=== PATIENT | female | born 1980 | race Hispanic/Latino ===

== ENCOUNTER 2018-02-03 14:32 | Emergency (ER) | payer BC, SELFPAY ==
[2018-02-03 15:33] LABS: Urine Blood TRACE (NEG); Urine Glucose NEGATIVE (NEG); Urine Protein 3+ (NEG); Urine Specific Gravity 1.015 (1.005-1.030)
[2018-02-03 15:35] LABS: Urine Bacteria >50 /HPF (<20); Urine Culture Reflex Order REFLEXED; Urine RBC <5 /HPF (NONE SEEN)
[2018-02-03] MEDS ORDERED: CEFTRIAXONE 1000 MG/VIAL ONE (15:58)
[2018-02-03] MEDS ORDERED: LIDOCAINE 1% MPF 5 ML VIAL ONE (15:58)
--- NOTE | 2018-02-03 16:29 | ER ---
Nurse's Notes [facility] Name: Laverne Soria Age: 37 yrs Sex: Female : 1980 Arrival Date: 02/03/2018 Time: 14:40 Bed 8 Private MD: Diagnosis: Acute tubulo-interstitial nephritis Presentation: 02/03 14:44 Presenting complaint: Patient states: Lower back pain and RLQ pain for 2 weeks. Patient aj reports vomiting this AM. Transition of care: patient was not received from another setting of care. Onset of symptoms was January 26, 2018. Care prior to arrival: None. 14:44 Method Of Arrival: Ambulatory aj 14:44 Acuity: SPENSER 3 aj Triage Assessment: 14:46 General: Appears in no apparent distress. uncomfortable, Behavior is calm, cooperative, aj appropriate for age. Pain: Complains of pain in low back area, posterior aspect of right lateral abdomen, anterior aspect of right lateral abdomen and right lower quadrant Pain currently is 10 out of 10 on a pain scale. Neuro: Level of Consciousness is awake, alert, obeys commands, Oriented to person, place, time, situation. Respiratory: Airway is patent Respiratory effort is even, unlabored, Respiratory pattern is regular, symmetrical. GI: Reports nausea, vomiting. Derm: Skin is intact, is healthy with good turgor, Skin is pink, warm \T\ dry. normal. Musculoskeletal: Circulation, motion, and sensation intact. 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 - Social history:: Smoking status: Patient/guardian denies using tobacco. Screenin:00 Abuse screen: Denies threats or abuse. Denies injuries from another. hb 15:00 Nutritional screening: No deficits noted. Tuberculosis screening: No symptoms or risk hb factors identified. Fall Risk None identified. Assessment: 15:00 General: Appears in no apparent distress. Behavior is calm, cooperative. Pain: Pain hb currently is 5 out of 10 on a pain scale. Neuro: Level of Consciousness is awake, alert, obeys commands, Oriented to person, place, time, situation. Cardiovascular: Capillary refill < 3 seconds Patient's skin is warm and dry. Respiratory: Airway is patent Respiratory effort is even, unlabored, Respiratory pattern is regular, symmetrical, Breath sounds are clear bilaterally. GI: Abdomen is non-distended, Bowel sounds present X 4 quads. Abd is soft and non tender X 4 quads. Reports nausea. : No signs and/or symptoms were reported regarding the genitourinary system. EENT: No signs and/or symptoms were reported regarding the EENT system. Derm: No signs and/or symptoms reported regarding the dermatologic system. Skin is intact, is healthy with good turgor, Skin is pink, warm \T\ dry. Musculoskeletal: No signs and/or symptoms reported regarding the musculoskeletal system. 16:00 Reassessment: Patient appears in no apparent distress at this time. Patient and/or hb family updated on plan of care and expected duration. Pain level reassessed. Patient is alert, oriented x 3, equal unlabored respirations, skin warm/dry/pink. Patient denies pain at this time. Patient states feeling better. Patient states symptoms have improved. Vital Signs: 14:46 BP 128 / 108; Pulse 103; Resp 18; Temp 97.8; Pulse Ox 100% on R/A; Weight 80.29 kg; aj Height 5 ft. 3 in. (160.02 cm); Pain 10/10; 15:00 BP 136 / 86; Pulse 84; Resp 16; Pulse Ox 100% on R/A; hb 16:00 BP 122 / 88; Pulse 88; Resp 16; Pulse Ox 100% on R/A; hb 14:46 Body Mass Index 31.35 (80.29 kg, 160.02 cm) ED Course: 14:40 Patient arrived in ED. mr 14:45 Triage completed. aj 14:46 Arm band placed on right wrist. Patient placed in an exam room. aj 14:50 Jose Corbin MD is Attending Physician. 15:21 America Canchola, RN is Primary Nurse. hb 15:30 Patient has correct armband on for positive identification. Bed in low position. Call hb light in reach. Side rails up X 1. 15:49 Urine Microscopic Only Sent. hb 16:50 No provider procedures requiring assistance completed. Patient did not have IV access hb during this emergency room visit. Administered Medications: 15:49 Drug: Rocephin (cefTRIAXone) 1 grams Route: IM; Site: right deltoid; 16:10 Follow up: Response: No adverse reaction hb Outcome: 16:28 Discharge ordered by . 16:50 Discharged to home ambulatory. 16:50 Condition: stable 16:50 Discharge instructions given to patient, Instructed on discharge instructions, follow up and referral plans. medication usage, Demonstrated understanding of instructions, follow-up care, medications, Prescriptions given X 1. 16:51 Patient left the ED. hb Addendum: 02/06/2018 11:00 Addendum: Culture Results: Positive urine culture. No further action required. Bacteria s s sensitive to prescribed antibiotic. Signatures: Suni Cummins, Alysha Bruno RN, Shelby, RN RN ss Baxter, Heather, RN RN Jose Corbin MD MD gs
--- NOTE | 2018-02-03 16:29 | EDPHYS ---
Physician Documentation [facility] Name: Laverne Soria Age: 37 yrs Sex: Female : 1980 Arrival Date: 02/03/2018 Time: 14:40 Bed 8 Private MD: ED Physician Jose Corbin HPI: 02/03 16:14 This 37 yrs old Female presents to ER via Ambulatory with complaints of Back gs Pain. 16:14 The patient presents with pain that is acute. The symptoms are located in the left low gs back and right low back. Onset: The symptoms/episode began/occurred gradually. The pain does not radiate. Associated signs and symptoms: Pertinent positives: dysuria. The problem was sustained from unknown cause. Modifying factors: The patient symptoms are alleviated by nothing, the patient symptoms are aggravated by movement. Severity of symptoms: At their worst the symptoms were moderate, in the emergency department the symptoms are unchanged. The patient has not experienced similar symptoms in the past. 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 - Social history:: Smoking status: Patient/guardian denies using tobacco. ROS: 16:14 All other systems are negative. gs Exam: 16:14 Head/Face: Normocephalic, atraumatic. Eyes: Pupils equal round and reactive to light, gs extra-ocular motions intact. Lids and lashes normal. Conjunctiva and sclera are non-icteric and not injected. Cornea within normal limits. Periorbital areas with no swelling, redness, or edema. ENT: Nares patent. No nasal discharge, no septal abnormalities noted. Tympanic membranes are normal and external auditory canals are clear. Oropharynx with no redness, swelling, or masses, exudates, or evidence of obstruction, uvula midline. Mucous membranes moist. Neck: Trachea midline, no thyromegaly or masses palpated, and no cervical lymphadenopathy. Supple, full range of motion without nuchal rigidity, or vertebral point tenderness. No Meningismus. Chest/axilla: Normal chest wall appearance and motion. Nontender with no deformity. No lesions are appreciated. Respiratory: Lungs have equal breath sounds bilaterally, clear to auscultation and percussion. No rales, rhonchi or wheezes noted. No increased work of breathing, no retractions or nasal flaring. Abdomen/GI: Soft, non-tender, with normal bowel sounds. No distension or tympany. No guarding or rebound. No evidence of tenderness throughout. Skin: Warm, dry with normal turgor. Normal color with no rashes, no lesions, and no evidence of cellulitis. MS/ Extremity: Pulses equal, no cyanosis. Neurovascular intact. Full, normal range of motion. Neuro: Awake and alert, GCS 15, oriented to person, place, time, and situation. Cranial nerves II-XII grossly intact. Motor strength 5/5 in all extremities. Sensory grossly intact. Cerebellar exam normal. Normal gait. 16:14 Constitutional: The patient appears alert, awake. 16:14 Cardiovascular: Rate: tachycardic, actual rate is 103 bpm, Rhythm: regular, Pulses: no pulse deficits are appreciated, Heart sounds: normal. 16:14 Back: CVA tenderness, that is mild, is noted bilaterally. Vital Signs: 14:46 BP 128 / 108; Pulse 103; Resp 18; Temp 97.8; Pulse Ox 100% on R/A; Weight 80.29 kg; aj Height 5 ft. 3 in. (160.02 cm); Pain 10/10; 15:00 BP 136 / 86; Pulse 84; Resp 16; Pulse Ox 100% on R/A; hb 16:00 BP 122 / 88; Pulse 88; Resp 16; Pulse Ox 100% on R/A; hb 14:46 Body Mass Index 31.35 (80.29 kg, 160.02 cm) aj MDM: 15:20 Patient medically screened. 16:14 Differential diagnosis: chronic back pain, Pyelonephritis ruptured disc. Data reviewed: vital signs, nurses notes. Counseling: I had a detailed discussion with the patient and/or guardian regarding: the presence of at least one elevated blood pressure reading (>120/80) during this emergency department visit. Response to treatment: the patient's symptoms have markedly improved after treatment. Special discussion: I have referred the patient to see his PCP for further evaluation of high blood pressure. 02/03 15:03 Order name: Urine Microscopic Only ss 02/03 15:03 Order name: Urine Microscopic Only; Complete Time: 16:13 EDMS 02/03 15:07 Order name: Urine Dipstick--Ancillary (enter results); Complete Time: 15:34 bd 02/03 15:07 Order name: Urine --Ancillary (enter results); Complete Time: 15:34 bd 02/03 15:37 Order name: Urine Culture EDMS Administered Medications: 15:49 Drug: Rocephin (cefTRIAXone) 1 grams Route: IM; Site: right deltoid; hb 16:10 Follow up: Response: No adverse reaction hb Disposition: 02/03/18 16:28 Discharged to Home. Impression: Acute tubulo-interstitial nephritis. - Condition is Stable. - Discharge Instructions: Pyelonephritis, Adult, Managing Your High Blood Pressure. - Prescriptions for Keflex 500 mg Oral Capsule - take 2 capsule by ORAL route every 12 hours for 7 days; 28 capsule. - Medication Reconciliation Form, Thank You Letter, Antibiotic Education, Prescription Opioid Use form. - Follow up: Private Physician; When: 2 - 3 days; Reason: Re-evaluation by your physician. Signatures: Dispatcher [employer] Suni Vazquez, RN RN America Stephen RN RN Jose Corbin MD MD
== END 2018-02-03 16:51 | disposition home or self-care (01) ==
LOC: ER 14:32
DX: N10 Acute pyelonephritis (principal)
CPT/HCPCS: 81003; 81015; 81025; 87077; 87086; 87088; 87186; 96372; 99283

== ENCOUNTER 2018-10-05 11:58 | Emergency (ER) | payer SELFPAY ==
--- NOTE | 2018-10-05 14:04 | ER ---
Nurse's Notes [facility] Name: Laverne Soria Age: 38 yrs Sex: Female : 1980 Arrival Date: 10/05/2018 Time: 12:03 Bed 25 Private MD: Unknown, Unknown Diagnosis: Conjunctivitis Presentation: 10/05 12:07 Presenting complaint: Patient states: "yesterday my eye way red but this morning when I dm5 woke up it was worse and hurts a lot worse.". Transition of care: patient was not received from another setting of care. Onset of symptoms was October 04, 2018. Risk Assessment: Do you want to hurt yourself or someone else? Patient reports no desire to harm self or others. Initial Sepsis Screen: Does the patient meet any 2 criteria? No. Patient's initial sepsis screen is negative. Does the patient have a suspected source of infection? Yes: Other: eye. Care prior to arrival: None. 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 - Social history:: Smoking status: Patient/guardian denies using tobacco. - Ebola Screening: : Patient negative for fever greater than or equal to 101.5 degrees Fahrenheit, and additional compatible Ebola Virus Disease symptoms Patient denies exposure to infectious person Patient denies travel to an Ebola-affected area in the 21 days before illness onset No symptoms or risks identified at this time. Screenin:19 Abuse screen: Denies threats or abuse. Denies injuries from another. Nutritional aj screening: No deficits noted. Tuberculosis screening: No symptoms or risk factors identified. Fall Risk None identified. Assessment: 14:19 General: Appears in no apparent distress. comfortable, Behavior is calm, cooperative, aj appropriate for age. Pain: Denies pain. Neuro: Level of Consciousness is awake, alert, obeys commands, Oriented to person, place, time, situation, Appropriate for age. Respiratory: Airway is patent Respiratory effort is even, unlabored, Respiratory pattern is regular, symmetrical. EENT: Reports swelling to bilateral eyes. Derm: Skin is intact, is healthy with good turgor, Skin is pink, warm \\T\\ dry. normal. Vital Signs: 12:11 BP 160 / 95; Pulse 75; Resp 20; Temp 97.6; Pulse Ox 100% on R/A; Weight 78.47 kg (R); dm5 Height 5 ft. 3 in. (160.02 cm) (R); Pain 10/10; 12:11 Body Mass Index 30.65 (78.47 kg, 160.02 cm) 5 ED Course: 12:03 Patient arrived in ED. ag5 12:03 Unknown, Unknown is Private Physician. 5 12:08 Triage completed. dm5 12:11 Arm band placed on left wrist. Patient placed in waiting room. [facility] 13:32 [facility] Noble [facility]. tom 13:32 Hipolito Bustamante MD is Attending Physician. jrJuan 13:39 Suni Cummins, RN is Primary Nurse. aj 14:19 Patient has correct armband on for positive identification. aj 14:19 No provider procedures requiring assistance completed. Patient did not have IV access aj during this emergency room visit. Administered Medications: No medications were administered Outcome: 14:03 Discharge ordered by . jrJuan 14:31 Discharged to home ambulatory. aj 14:31 Condition: good 14:31 Discharge instructions given to patient, family, Instructed on discharge instructions, follow up and referral plans. medication usage, Demonstrated understanding of instructions, follow-up care, medications, Prescriptions given X 1. 14:32 Patient left the ED. aj Signatures: Jagruti Darling RN Suni Carranza RN RN aj Roszak, Josh, PA PA jr8 [place], [facility]
--- NOTE | 2018-10-05 14:04 | EDPHYS ---
Physician Documentation [facility] Name: Laverne Soria Age: 38 yrs Sex: Female : 1980 Arrival Date: 10/05/2018 Time: 12:03 Bed 25 Private MD: Unknown, Unknown ED Physician Hipolito Bustamante HPI: 10/05 14:01 This 38 yrs old Female presents to ER via Ambulatory with complaints of Eye jr8 Swelling, Redness of Eye. 14:01 The patient is experiencing burning, matting or discharge, redness, tearing, to the jr8 right eye. Onset: The symptoms/episode began/occurred acutely, yesterday. Duration: the symptoms are continuous. Aggravated by blinking, light, pressure, Alleviated by nothing. Associated signs and symptoms: Pertinent positives: None. Patient does not utilize any form of vision correction. Severity of symptoms: At their worst the symptoms were mild in the emergency department the symptoms are unchanged. The patient has not experienced similar symptoms in the past. The patient has not recently seen a physician. Denies trauma to eye. 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 - Social history:: Smoking status: Patient/guardian denies using tobacco. - Ebola Screening: : Patient negative for fever greater than or equal to 101.5 degrees Fahrenheit, and additional compatible Ebola Virus Disease symptoms Patient denies exposure to infectious person Patient denies travel to an Ebola-affected area in the 21 days before illness onset No symptoms or risks identified at this time. ROS: 14:01 Constitutional: Negative for fever, chills, and weight loss, ENT: Negative for injury, jr8 pain, and discharge, Neck: Negative for injury, pain, and swelling, Cardiovascular: Negative for chest pain, palpitations, and edema, Respiratory: Negative for shortness of breath, cough, wheezing, and pleuritic chest pain, Abdomen/GI: Negative for abdominal pain, nausea, vomiting, diarrhea, and constipation, Back: Negative for injury and pain, MS/Extremity: Negative for injury and deformity, Skin: Negative for injury, rash, and discoloration, Neuro: Negative for headache, weakness, numbness, tingling, and seizure. 14:01 Eyes: Positive for matting, pain, redness, tearing, of the right eye. Exam: 14:01 Head/Face: Normocephalic, atraumatic. ENT: Nares patent. No nasal discharge, no jr8 septal abnormalities noted. Tympanic membranes are normal and external auditory canals are clear. Oropharynx with no redness, swelling, or masses, exudates, or evidence of obstruction, uvula midline. Mucous membranes moist. Neck: Trachea midline, no thyromegaly or masses palpated, and no cervical lymphadenopathy. Supple, full range of motion without nuchal rigidity, or vertebral point tenderness. No Meningismus. Cardiovascular: Regular rate and rhythm with a normal S1 and S2. No gallops, murmurs, or rubs. Normal PMI, no JVD. No pulse deficits. Respiratory: Lungs have equal breath sounds bilaterally, clear to auscultation and percussion. No rales, rhonchi or wheezes noted. No increased work of breathing, no retractions or nasal flaring. Abdomen/GI: Soft, non-tender, with normal bowel sounds. No distension or tympany. No guarding or rebound. No evidence of tenderness throughout. Back: No spinal tenderness. No costovertebral tenderness. Full range of motion. Skin: Warm, dry with normal turgor. Normal color with no rashes, no lesions, and no evidence of cellulitis. MS/ Extremity: Pulses equal, no cyanosis. Neurovascular intact. Full, normal range of motion. Neuro: Awake and alert, GCS 15, oriented to person, place, time, and situation. Cranial nerves II-XII grossly intact. Motor strength 5/5 in all extremities. Sensory grossly intact. Cerebellar exam normal. Normal gait. 14:01 Eyes: Periorbital structures: appear normal, Pupils: equal, round, and reactive to light and accomodation, Extraocular movements: intact throughout, Conjunctiva: injected, in the right eye, tearing noted, in right eye, Corneas: are normal, Sclera: no appreciated abnormality, Anterior chamber: normal, Lids and lashes: appear normal. Vital Signs: 12:11 BP 160 / 95; Pulse 75; Resp 20; Temp 97.6; Pulse Ox 100% on R/A; Weight 78.47 kg (R); dm5 Height 5 ft. 3 in. (160.02 cm) (R); Pain 10/10; 12:11 Body Mass Index 30.65 (78.47 kg, 160.02 cm) dm5 MDM: 13:32 Patient medically screened. jr8 14:01 Data reviewed: vital signs, nurses notes, and as a result, I will discharge patient. jr8 Data interpreted: Pulse oximetry: on room air is 100 %. Interpretation: normal. Counseling: I had a detailed discussion with the patient and/or guardian regarding: the historical points, exam findings, and any diagnostic results supporting the discharge/admit diagnosis, the need for outpatient follow up, an opthalmologist, a family practitioner, to return to the emergency department if symptoms worsen or persist or if there are any questions or concerns that arise at home. Administered Medications: No medications were administered Disposition: 18:07 Co-signature as Attending Physician, Hipolito Bustamante MD I agree with the assessment and [facility] plan of care. Disposition: 10/05/18 14:03 Discharged to Home. Impression: Conjunctivitis. - Condition is Stable. - Discharge Instructions: Bacterial Conjunctivitis, Viral Conjunctivitis. - Prescriptions for Gentamicin 0.3 % Ophthalmic Drops - instill 2 drop by OPHTHALMIC route every 4 hours for 7 days; 1 bottle. - Medication Reconciliation Form, Thank You Letter, Antibiotic Education, Prescription Opioid Use form. - Follow up: Private Physician; When: 7 - 10 days; Reason: If symptoms return, Recheck today's complaints, Continuance of care, Re-evaluation by your physician. - Problem is new. - Symptoms have improved. Signatures: Jagruti Darling RN RN dmSuni Molina RN RN aj Anderson, Corey, MD MD cha Roszak, Josh, PA PA jr8 Corrections: (The following items were deleted from the chart) 14:32 14:03 10/05/2018 14:03 Discharged to Home. Impression: Conjunctivitis. Condition is aj Stable. Forms are Medication Reconciliation Form, Thank You Letter, Antibiotic Education, Prescription Opioid Use. Follow up: Private Physician; When: 7 - 10 days; Reason: If symptoms return, Recheck today's complaints, Continuance of care, Re-evaluation by your physician. Problem is new. Symptoms have improved. jr8
== END 2018-10-05 14:32 | disposition home or self-care (01) ==
LOC: ER 11:58
DX: H10.9 Unspecified conjunctivitis (principal); I10 Essential (primary) hypertension
CPT/HCPCS: 99282

== ENCOUNTER 2022-04-06 16:42 | Emergency (ER) | payer OTHER, SELFPAY ==
--- OUTSIDE RECORDS SUMMARY | 2022-04-06 16:45 | XMS REPORT | Continuity of Care Document ---
:[address] [facility] t Address [address] [place] [address] Dr. Danielle. [address] [place] [address] Care Team Providers Name Role Phone Pcp, Does Not Have A Primary Care Physician Du, H Attending Clinician Unavailable Ali Attending Clinician Unavailable Singer BRADFORD Attending Clinician Doctor Unassigned, Name Attending Clinician Unavailable Candido VILLATORO Attending Clinician Unavailable Mino Abdi NP Attending Clinician Du, H Admitting Clinician Unavailable KNOW Admitting Clinician Unavailable Lyly Admitting Clinician Unavailable Payers Payer Name Policy Type Policy Number Effective Date Expiration Date [place] [employer] [id number] 2020 HEALTH 00:00:00 Problems Condition Condition Condition Status Onset Resolution Last Treating Co mments Source Name Details Category Date Date Treatment Clinician Date Essential Essential Disease Active 2015-11 Uni vers hypertensi hypertensi 2-09 it y of on, benign [place], [id number] Yeast Yeast Disease Active 2015-11 Univers infection infection 2- ity of 00:00: [address] Morbid Morbid Disease Active Univers obesity obesity 2- ity of 00:00: [address] Contracept Contracept Disease Active U nivers eliceo eliceo 2-27 ity of management management 00:00: [place] History of History of Disease Active 2012-11 U edilberto tubal tubal 11-29 ity of ligation ligation 00:00: [place] 00 Medical Branch Type 2 Type 2 Disease Active 2012-11 Overview: [facility] diabetes diabetes 11-29 Formattin ity of mellitus mellitus 00:00: g of this [place] as without without 00 note Medical complicati complicati might be Branch ons ons different from the original. Given rx for Metformin 500mg once daily by Latrell Hinkle on 4.ICD10 Diagnosis Term [employer] Allergies, Adverse Reactions, Alerts Allergy Allergy Status Severity Reaction(s) Onset Inactive Treating Comm ents Source Name Type Date Date Clinician No Known DA Active U [facility] Allergie 3- Clear s 00:00: [place] 00 [facility] NO KNOWN Drug Active Univers ALLERGIE Class ity of S [facility] Social History Social Habit Start Date Stop Date Quantity Comments Source Exposure to Not sure [facility]-CoV-2 [place] [facility] (event) Branch Alcohol intake 2020-10-29 2020-10-29 Current [facility] 00:00:00 00:00:00 non-drinker of [facility] alcohol Branch (finding) Tobacco use and 2013-09-29 2013-09-29 Never used Universit y of exposure 00:00:00 00:00:00 [facility] Sex Ass[birth year] At [birth year] Universit y of 00:00:00 00:00:00 [facility] Smoking Status Start Date Stop Date Source Never smoker [facility] Branch Medications Ordered Filled Start Stop Current Ordering Indication Dosage Frequency Signature Comments Components Source Medication Medication Date Date Medication? Clinician (SIG) Name Name chlorphenir 2020-11 Yes [id number] 4mg Take 1 Univers amine 4 mg 0-07 tablet by ity of tablet 00:00: mouth [place] 00 every 6 Medical (six) Branch hours as needed for Allergies or Runny nose. calcium/mag 2020-11 Yes [id number] 1{each} Take 1 Univers nesium/zinc 0-07 Each by ity o f (CALCIUM-MA 00:00: mouth [place] GNESUIUM-ZI 00 daily. Medica l NC) Branch 333-133-5 mg Tab benzonatate 2020-11 Yes [id number] 100mg Take 1 Univers 100 mg 0-07 capsule by ity of capsule 00:00: mouth 3 [place] 00 (three) Medical times Branch daily as needed for Cough. fluticasone 2020-11 Yes [id number] 2{spray Use 2 Univers propionate 0-07 } Sprays in ity of 50 00:00: each [place] mcg/actuati 00 nostril Medic al on nasal daily. Branch spray vitamin 2020-11- No [id number] 1{tbl} Take 1 U nivers D3-folic 0-07 09-09 tablet by ity o f acid 125 00:00: 04:59 mouth [place] mcg (5,000 00 :00 daily for Medi pablo unit)-1 mg 30 days. Branc h Tab cefTRIAXone 2019-11- No 1000mg 1,000 mg, Univers (ROCEPHIN) 12-31 IV ity of 1,000 mg in 04:00: 15:59 [place]gyback, [place] NaCl 0.9% 00 :00 ONCE, 1 Medical (NS) 50 mL dose, [facility] MINI-BAG 10/29/20 at 2200, 50 mL
Reas on for Anti-Infec tive: Documented Infection< br>Documen adams Infection Site: Urine
D uration of Therapy: 7 days magnesium 2019-11- No 1g 8 mEq (1 Uni vers sulfate 4 12-31 g), IV ity of mEq/mL (50 03:15: 03:15 [place]gyback, [place] %) 00 :00 ONCE, 1 Medical injection 8 dose, [facility] mEq 10/29/20 at 2115, STAT iohexol 2019-11- No 100mL 100 mL, Unive rs (OMNIPAQUE 12-31 Intravenou it y of 350 02:00: 01:52 s, ONCE, 1 [place] BULK-100 00 :00 dose, [facility] l mL) 10/29/20 Branch injection at 2000, 100 mL Routine ketorolac 2019-11- No 30mg 30 mg, Unive rs (TORADOL) 12-31 Slow IV ity of injection 01:15: 00:43 Push, [place] 30 mg 00 :00 ONCE, 1 Medical dose, Sun Branch 10/29/20 at 1915, Routine
sales team member approving Restricted medication : CHELY ABDI acetaminoph 2019-11- No 1000mg 1,000 mg, Univers en -30 10- Oral, ity of (TYLENOL) 00:30: 23:27 ONCE, 1 [place] tablet 00 :00 dose, [facility] 1,000 mg 10/29/20 Branch at 1830, ZAHIRA NaCl 0.9% 2019-11- No 1000mL at 999 Uni vers (NS) bolus - 12-28 mL/hr, ity of infusion 00:15: 01:58 1,000 mL, [place] as 1,000 mL 00 :00 IV Medical Infusion, Branch ONCE, 1 dose, 10/29/20 at 1815, ZAHIRA ibuprofen 2019-11 Yes [id number] 800mg Take 1 U nivers 800 mg 2-27 tablet by ity of tablet 00:00: mouth [place] 00 every 8 Medical (eight) Branch hours as needed for Pain (scale 1-3), Pain (scale 4-6) or Temp > 38.5 C. ibuprofen 2019-11 Yes [id number] 800mg Take 1 U nivers 800 mg 2-27 tablet by ity of tablet 00:00: mouth [place] 00 every 8 Medical (eight) Branch hours as needed for Pain (scale 1-3), Pain (scale 4-6) or Temp > 38.5 C. ibuprofen 2019-11 Yes [id number] 800mg Take 1 U nivers 800 mg 2-27 tablet by ity of tablet 00:00: mouth [place] 00 every 8 Medical (eight) Branch hours as needed for Pain (scale 1-3), Pain (scale 4-6) or Temp > 38.5 C. cefpodoxime 2019-11- No [id number] 200mg Take 1 Univers 200 mg 2-27 11-04 tablet by ity of tablet 00:00: 05:59 mouth 2 [place] 00 :00 (two) Medical times Branch daily for 10 doses. hydroCHLORO 2015-11 Yes [id number] 25mg Take 1 U nivers thiazide 2-09 tablet by ity of (ESIDRIX) 00:00: mouth [place] 25 mg 00 daily. Medical tablet Branch hydroCHLORO 2015-11 Yes [id number] 25mg Take 1 U nivers thiazide 2-09 tablet by ity of (ESIDRIX) 00:00: mouth [place] 25 mg 00 daily. Medical tablet Branch hydroCHLORO 2015-11 Yes [id number] 25mg Take 1 U nivers thiazide 2-09 tablet by ity of (ESIDRIX) 00:00: mouth [place] 25 mg 00 daily. [facility] Branch Immunizations Ordered Filled Immunization Date Status Comments [facility] e Immunization Name Name SARS-COV-2 COVID-19 2021-01-07 Completed Unive rsity of MODERNA VACCINE 00:00:[address] [facility] SARS-COV-2 COVID-19 2021-01-07 Completed Unive rsity of MODERNA VACCINE 00:00:[address] [facility] Branch SARS-COV-2 COVID-19 2020-12-10 Completed Unive rsity of MODERNA VACCINE 00:00:00 [facility] Branch SARS-COV-2 COVID-19 2020-12-10 Completed Unive rsity of MODERNA VACCINE 00:00:[address] [facility] TDAP 2013-09-29 Completed University of 00:00:00 [facility] TDAP 2013-09-29 Completed University of 00:00:00 [facility] Branch TDAP 2013-09-29 Completed University of 00:00:00 [place] [facility] [place] Td 1997-06-29 Completed University of 00:00:00 [place] [facility] Td 1997-06-29 Completed University of 00:00:00 [facility] Td 1997-06-29 Completed University of 00:00:00 [facility] Vital Signs Vital Name Observation Time Observation Value Comments Source Systolic blood 2021-08-09 17:56:00 168 mm[Hg] Univer sity of pressure [facility] Diastolic blood 2021-08-09 17:56:00 82 mm[Hg] Unive rsity of pressure [facility] Heart rate 2021-08-09 17:56:00 83 /min [facility] Body temperature 2021-08-09 17:56:00 36.39 Saranya [facility] Respiratory rate 2021-08-09 17:56:00 18 /min [facility] Body height 2021-08-09 17:56:00 157.5 cm [facility] Body weight 2021-08-09 17:56:00 94.348 kg [facility] BMI 2021-08-09 17:56:00 38.04 kg/m2 [facility] Oxygen saturation in 2021-08-09 17:56:00 99 /min [facility] Arterial blood by [facility] Pulse oximetry Branch Systolic blood 2020-10-30 03:00:00 126 mm[Hg] [place]na[place] sity of pressure [facility] Diastolic blood 2020-10-30 03:00:00 81 mm[Hg] [facility] Heart rate 2020-10-30 03:00:00 82 /min [facility] Respiratory rate 2020-10-30 03:00:00 18 /min [facility] Oxygen saturation in 2020-10-30 03:00:00 94 /min [facility] Arterial blood by [facility] Pulse oximetry Branch Body temperature 2020-10-30 00:30:00 38.33 Saranya [facility] Body weight 2020-10-29 23:25:00 91.627 kg [facility] BMI 2020-10-29 23:25:00 35.78 kg/m2 [facility] Procedures Procedure Date / Time Performed Performing Clinician Inge LOPEZID-19 (ID NOW RAPID 2021-08-09 17:59:00 Yevgeniy Encarnacion [facility] TESTING) Medical Branch NOTICE OF PRIVACY 2021-08-09 17:51:32 Doctor Unassigned, No [facility] PRACTICES Name [facility] CONSENT/REFUSAL FOR 2021-08-09 17:51:20 Doctor Unassigned, No [facility] DIAGNOSIS AND Name Medical Branch TREATMENT MAGNESIUM 2020-10-30 02:21:00 Chely Abdi [facility] [place] [facility] CT ABDOMEN PELVIS W 2020-10-30 01:58:10 Chely Abdi [facility] CONTRAST Medical Branch LIPASE 2020-10-30 00:46:00 Chely Abdi [facility] [place] [facility] HEPATIC FUNCTION PANEL 2020-10-30 00:46:00 Chely Abdi [facility] ([id number]) Medical [place] (ALB,T.PRO,BILI T,BU/BC,ALT,AST,ALK PHOS) BASIC METABOLIC PANEL 2020-10-30 00:46:00 Chely Abdi [facility] (NA, K, CL, CO2, Medical Branch GLUCOSE, BUN, CREATININE, CA) CBC WITH DIFF 2020-10-30 00:46:00 Chely Abdi [facility] [place] [facility] URINALYSIS 2020-10-30 00:46:00 Chely Abdi [facility] [place] [facility] POCT TEST 2020-10-30 00:45:00 Chely Abdi [facility] NOTICE OF PRIVACY 2020-10-29 23:10:17 Doctor Unassigned, No Univ [facility] PRACTICES Name Medical Branch Encounters Start End Encounter Admission Attending Care Care Encounter Source Date/Time Date/Time Type Type Clinicians Facility Department ID 2021-09-04 Emergency [facility] [id number] Univers 04:55:44 [facility] 2021-09-01 Emergency [facility] [id number] Univers 13:14:30 [facility] 2022-03-25 2022-03-26 Inpatient Demario Chen [facility] MEDI.01 [id number] [facility] 08:57:00 12:05:00 [id number] [facility] 2022-03-25 2022-03-26 Inpatient Demario Chen [facility] MEDI.01 [id number] [facility] 08:57:00 12:05:00 52 [facility] 2022-01-07 2022-01-07 Outpatient Terry Patricia [facility] DAYS [id number] [facility] 08:00:00 08:00:00 [id number] [facility] 2022-01-07 2022-01-07 Outpatient Terry Patricia [facility] V01 [id number] [facility] 08:00:00 08:00:00 76 [facility] 2022-01-04 2022-01-04 Outpatient [facility] [id number] [facility] 13:58:00 13:58:00 [id number] [facility] 2021-08-09 2021-08-09 Emergency [facility] [id number] Univers 13:01:00 13:43:00 Yevgeniy Sams [id number] i ty of [place] [id number] [facility] [phone] [facility] 084 Branch 2021-08-09 2021-08-09 Orders Doctor EPIFANIO [id number] Univers 00:00:00 00:00:00 Only Unassigned, RAMAN [id number] ity of [facility] [id number] [facility] [id number] [facility] 009 Branch 2021-01-07 2021-01-07 Outpatient [facility] [id number] Univers 16:10:00 16:10:00 [id number] ity [facility] 2021-01-07 2021-01-07 Outpatient [facility] [id number] Univers 16:10:00 16:10:00 ity [facility] 2020-12-10 2020-12-10 Outpatient R SHAUNA, [facility] [id number] Univers 15:10:00 15:10:00 [place] ity [facility] 2020-10-29 2020-10-[address] [facility] [id number] Univers 17:28:00 21:22:00 Chely Herzog Latrell [id number] ity of [place] [id number] [facility] [id number] [address] Results Test Description Test Time Test Comments Results Result Comments Source CBC W/AUTO DIFF 2022-03-26 05:21:00 Test Item Value Reference Range Interpretation Comme nts WHITE BLOOD CELL (test code = WBC) 10.8 x10 3/uL 4.5-11.0 N RED BLOOD CELL (test code = RBC) 4.85 x10 6/uL 3.54-5.02 N HEMOGLOBIN (test code = HGB) 9.8 g/dL 11.0-15.0 L HEMATOCRIT (test code = HCT) 33.4 % 33.0-45.0 N MEAN CELL VOLUME (test code = MCV) 68.9 fL 81.0-99.0 L MEAN CELL HGB (test code = MCH) 20.2 pg 27.0-33.0 L MEAN CELL HGB CONCETRATION (test code = MCHC) 29.3 g/dL 33.0-37. 0 L RED CELL DISTRIBUTION WIDTH CV (test code = RDW) 17.3 % 11.5- 14.5 H RED CELL DISTRIBUTION WIDTH SD (test code = RDW-SD) 42.2 fL 37 .0-54.0 N PLATELET COUNT (test code = PLT) 413 x10 3/uL 150-400 H MEAN PLATELET VOLUME (test code = MPV) 9.8 fL 7.0-9.0 H NEUTROPHIL % (test code = NT%) 77.8 % 56.0-77.0 H IMMATURE GRANULOCYTE % (test code = IG%) 0.3 % 0.0-2.0 N LYMPHOCYTE % (test code = LY%) 16.9 % 14.0-32.0 N MONOCYTE % (test code = MO%) 4.9 % 4.8-9.0 N EOSINOPHIL % (test code = EO%) 0.0 % 0.3-3.7 L BASOPHIL % (test code = BA%) 0.1 % 0.0-2.0 N NUCLEATED RBC % (test code = NRBC%) 0.0 % 0-0 N NEUTROPHIL # (test code = NT#) 8.43 x10 3/uL 2.0-7.6 H IMMATURE GRANULOCYTE # (test code = IG#) 0.03 x10 3/uL 0.00-0.03 N LYMPHOCYTE # (test code = LY#) 1.83 x10 3/uL 1.0-3.8 N MONOCYTE # (test code = MO#) 0.53 x10 3/uL 0.1-0.8 N EOSINOPHIL # (test code = EO#) 0.00 x10 3/uL 0.0-0.2 N BASOPHIL # (test code = BA#) 0.01 x10 3/uL 0.0-0.2 N NUCLEATED RBC # (test code = NRBC#) 0.00 x10 3/uL 0.0-0.1 N MANUAL DIFF REQUIRED (test code = MDIFF) NO BASIC METABOLIC [id number] 05:19:00 Test Item Value Reference Range Interpretation Comments SODIUM (test code = NA) 138 mEq/L 134-147 N POTASSIUM (test code = 3.8 mEq/L 3.4-5.0 N K) CHLORIDE (test code = 105 mEq/L 100-108 N CL) CARBON DIOXIDE (test 27 mEq/l 21-33 N code = CO2) ANION GAP (test code = 10 0-20 N GAP) GLUCOSE (test code = 120 mg/dL 70-110 H GLU) BLOOD UREA NITROGEN 7 mg/dL 7-18 N (test code = BUN) GLOMERULAR FILTRATION 79.9 105-110 L Units of measure = RATE (test code = GFR) ml/mi n/1.73 m2 CREATININE (test code = 0.8 mg/dL 0.6-1.3 N CREAT) CALCIUM (test code = 8.8 mg/dL 8.0-10.5 N CA) Novel Coronavirus 2018 [id number] 01:17:00 Test Item Value Reference Range Interpretation Comments Novel Coronavirus Negative Negative Positive r esults are 2019 Inhouse (test indicativ e of the presence code = COVNONPUI) ofSARS-CoV -2 RNA, clinical correlation wit h patient historyand othe r diagnostic info rmation is necessary to determinepatien t infection status. Positiv e results do not rule out bacterial infection or co -infection with other viru ses. Negative result s do not preclude SARS-C oV-2 infection andsh ould not be used as the francis e basis for patient managementdecis ions. Negative result s must be combined with otherclinical observations, p atient history, and epidemiological information . Detection of SARS-CoV-2 RNA may be affe cted bysample collec tion methods, storag e conditions, and /or stageof infection. Anh l RNA mutations, vacc inations, antiviraltherap eutics, antibiotics, chemotherapeuti c orimmunosuppres ga drugs have not been e valuated for effectson d etection. Results are for the identification of SARS-CoV-2 RNA usingreal-time (RT) polymerase jose carlos n reaction (PCR) technolog yfor the qualitative det ection of nucleic acids f rom [id number] v irus and diagnosis of SA RS-CoV-2 virusinfection. It is an Emergency Use Authorization ( EUA) testauthorized by the U.S. FDA. CBC W/AUTO [id number] 16:28:00 Test Item Value Reference Range Interpretation Comments WHITE BLOOD CELL (test code = 10.2 x10 3/uL 4.5-11.0 N WBC) RED BLOOD CELL (test code = 4.69 x10 6/uL 3.54-5.02 N RBC) HEMOGLOBIN (test code = HGB) 9.5 g/dL 11.0-15.0 L HEMATOCRIT (test code = HCT) 32.1 % 33.0-45.0 L MEAN CELL VOLUME (test code = 68.4 fL 81.0-99.0 L MCV) MEAN CELL HGB (test code = MCH) 20.3 pg 27.0-33.0 L MEAN CELL HGB CONCETRATION 29.6 g/dL 33.0-37.0 L (test code = MCHC) RED CELL DISTRIBUTION WIDTH CV 17.9 % 11.5-14.5 H (test code = RDW) RED CELL DISTRIBUTION WIDTH SD 43.4 fL 37.0-54.0 N (test code = RDW-SD) PLATELET COUNT (test code = 413 x10 3/uL 150-400 H PLT) MEAN PLATELET VOLUME (test code 9.6 fL 7.0-9.0 H = MPV) NEUTROPHIL % (test code = NT%) 61.8 % 56.0-77.0 N IMMATURE GRANULOCYTE % (test 0.3 % 0.0-2.0 N code = IG%) LYMPHOCYTE % (test code = LY%) 29.0 % 14.0-32.0 N MONOCYTE % (test code = MO%) 7.7 % 4.8-9.0 N EOSINOPHIL % (test code = EO%) 0.5 % 0.3-3.7 N BASOPHIL % (test code = BA%) 0.7 % 0.0-2.0 N NUCLEATED RBC % (test code = 0.0 % 0-0 N NRBC%) NEUTROPHIL # (test code = NT#) 6.28 x10 3/uL 2.0-7.6 N IMMATURE GRANULOCYTE # (test 0.03 x10 3/uL 0.00-0.03 N code = IG#) LYMPHOCYTE # (test code = LY#) 2.95 x10 3/uL 1.0-3.8 N MONOCYTE # (test code = MO#) 0.78 x10 3/uL 0.1-0.8 N EOSINOPHIL # (test code = EO#) 0.05 x10 3/uL 0.0-0.2 N BASOPHIL # (test code = BA#) 0.07 x10 3/uL 0.0-0.2 N NUCLEATED RBC # (test code = 0.00 x10 3/uL 0.0-0.1 N NRBC#) MANUAL DIFF REQUIRED (test code NO = MDIFF) RBC [id number] 16:28:00 Test Item Value Reference Range Interpretation Comments ANISOCYTOSIS (test code = ANISO) 1+ POLYCHROMASIA (test code = POLC) 1+ MICROCYTOSIS (test code = MICR) 2+ OVALOCYTES (test code = OVAL) FEW BASIC METABOLIC [id number] 16:13:00 Test Item Value Reference Range Interpretation Comments SODIUM (test code = NA) 139 mEq/L 134-147 N POTASSIUM (test code = 4.2 mEq/L 3.4-5.0 N K) CHLORIDE (test code = 106 mEq/L 100-108 N CL) CARBON DIOXIDE (test 25 mEq/l 21-33 N code = CO2) ANION GAP (test code = 12 0-20 N GAP) GLUCOSE (test code = 133 mg/dL 70-110 H GLU) BLOOD UREA NITROGEN 7 mg/dL 7-18 N (test code = BUN) GLOMERULAR FILTRATION 69.7 105-110 L Units of measure = RATE (test code = GFR) ml/mi n/1.73 m2 CREATININE (test code = 0.9 mg/dL 0.6-1.3 N CREAT) CALCIUM (test code = 8.9 mg/dL 8.0-10.5 N CA) PROTHROMBIN [id number] 16:11:00 Test Item Value Reference Range Interpretation Comments PROTHROMBIN TIME 11.9 SECONDS 9.3-12.9 N PATIENT (test code = PTP) INTERNATIONAL NORMAL 1.1 0.8-1.2 N TARGET RATIO (test code = INR BY IN DICATION INR) Indication INR1. Prophyl axis of venous thrombos is 2.0 - 3. 0 (orthopedic ruthie cydney), Prophylaxis of venous thrombos is (other than hig h-risk surgery), Graciela tment of Deep Vein Thrombosis/Pulm onary Embolism, Preve ntion of systemic emb olism - Tissue heart va lves, Acute Myocardia l Infarction (to prevent systemic embo lism), Valvular heart disease, Atri al Fibrillation, Bileaflet mecha nical valve in aortic position.2. Mec hanical prosthetic valv es (high risk), 2.5 - 3.5 Presence of Lupus Anticoagu lant or Antiphospholi pid Antibodies, Pre vention of systemic e mbolism - Acute Myocard ial Infarction (t o prevent recurre nt infarct). THROMBOPLASTIN TIME [id number] 16:11:00 Test Item Value Reference Range Interpretation Comments THROMBOPLASTIN TIME 28.2 Seconds 25.0-39.5 N Ther apeutic PARTIAL (test code = Range: 50.4 - 88.3 PTT) Seconds Effective 02/16/2019 HCG SERUM [id number] 16:03:00 Test Item Value Reference Range Interpretation Comments HCG SERUM QUAL (test code = SERUM NEGATIVE NEGATIVE HCGQL) [id number] 16:06:00 Test Item Value Reference Range Interpretation Comments SURGICAL (test code = SR) -----RUN DATE: 01/08/22 [place] [facility] PAGE 1 RUN TIME: 1606 Specimen Inquiry RUN USER: INTERFACE -----PATIENT: KATINA BOJORQUEZ LOC: ADDIS U #: [id number] AGE/SX: 41/F ROOM: RE01/07/22REG DR: Terry Desouza MD : 82 BED: DIS: STATUS: [facility] TLOC: ----- SPEC #: [id number] RECD: 01/07/22 STATUS: JOE ZULUAGA #: [id number] JHONY: 01/07/22- [facility] DR: Terry Desouza MD ENTERED: 01/07/22 SP TYPE: SURGICAL OTHR DR: ORDERED: 31941/2, [id number], ANATOMIC SPEC PROCEDURES: [id number] (01/07/22) [id number] (01/08/22) TISSUES: A. DUODENUM BIOPSY - bx B. GASTRIC POLYP - bx FINAL DIAGNOSIS A. DUODENUM, BIOPSY: - Mild chronic duodenitis - No significant abnormality of villous architecture or hyperplasia of the crypts. B. GASTRIC, BIOPSY: - Mild chronic gastritis with mucosa erosion and reparative changes. - Giemsa special stain with appropriate control is negative for H. pylori. GROSS DESCRIPTION A. Received in formalin, labeled patient's name and medical record number and markedduodenum biopsy. 3 pieces of pink alcantara soft tissue, 3 mm each. Entirely submitted in 1cassette. B. Received in formalin, labeled patient's name and medical record number and markedgastric biopsy. 2 pieces of pink alcantara soft tissue, 3 mm each. Entirely submitted in 1cassette. Technical component excluding immunohistochemistry is performed at [facility], [address] [place] [address] Technical component of all immunohistochemistry is performed at [facility], [address] [place] [address], [address], [place] [address] Immunohistochemistry: This test was developed and its performance characteristicsdetermined by this laboratory. It has not been approved nor does it need approval by the USFDA. Appropriate positive and negative controls are reviewed and judged to be acceptable.This laboratory is certified under the Clinical Laboratory Improvement Amendments (CLIA-88)as qualified to perform high complexity clinical laboratory testing. Unless gross only, the diagnosis is based upon microscopic examination. CONTINUED ON NEXT PAGE -----RUN DATE: 01/08/22 [facility] PAGE 2 RUN TIME: 1606 Specimen Inquiry RUN USER: INTERFACE -----SPEC #: [id number] PATIENT: KATINA BOJORQUEZ #[id number] (Continued) CLINICAL INFORMATION COLLECTION DATE: 01/07/2022 GERD, EPIGASTRIC PAIN, NAUSEAPOST-OP DIAGNOSIS: HIATAL HERNIA, GASTRITIS, GASTRIC SLEEVE Signed SIGNATURE ON FILE RiaRolorussell 01/08/22 1606 ----- END OF REPORT Novel Coronavirus 05:33:00 Test Item Value Reference Range Interpretation Comments Novel Coronavirus Negative Negative Positive r esults are 2019 Inhouse (test indicativ e of the presence code = [id number]) ofSARS-CoV -2 RNA, clinical correlation wit h patient historyand othe r diagnostic info rmation is necessary to determinepatien t infection status. Positiv e results do not rule out bacterial infection or co -infection with other viru ses. Negative result s do not preclude SARS-C oV-2 infection andsh ould not be used as the francis e basis for patient managementdecis ions. Negative result s must be combined with otherclinical observations, p atient history, and epidemiological information . Detection of SARS-CoV-2 RNA may be affe cted bysample collec tion methods, storag e conditions, and /or stageof infection. Anh l RNA mutations, vacc inations, antiviraltherap eutics, antibiotics, chemotherapeuti c orimmunosuppres ga drugs have not been e valuated for effectson d etection. Results are for the identification of SARS-CoV-2 RNA usingreal-time (RT) polymerase jose carlos n reaction (PCR) technolog yfor the qualitative det ection of nucleic acids f rom [id number] v irus and diagnosis of SA RS-CoV-2 virusinfection. It is an Emergency Use Authorization ( EUA) testauthorized by the U.[place]. FDA. Novel Coronavirus 05:32:00 Test Item Value Reference Range Interpretation Comments Novel Coronavirus Negative Negative Positive r esults are 2019 Inhouse (test indicativ e of the presence code = [id number]) ofSARS-CoV -2 RNA, clinical correlation wit h patient historyand othe r diagnostic info rmation is necessary to determinepatien t infection status. Positiv e results do not rule out bacterial infection or co -infection with other viru ses. Negative result s do not preclude SARS-C oV-2 infection andsh ould not be used as the francis e basis for patient managementdecis ions. Negative result s must be combined with otherclinical observations, p atient history, and epidemiological information . Detection of SARS-CoV-2 RNA may be affe cted bysample collec tion methods, storag e conditions, and /or stageof infection. Anh l RNA mutations, vacc inations, antiviraltherap eutics, antibiotics, chemotherapeuti c orimmunosuppres ga drugs have not been e valuated for effectson d etection. Results are for the identification of SARS-CoV-2 RNA usingreal-time (RT) polymerase jose carlos n reaction (PCR) technolog yfor the qualitative det ection of nucleic acids f rom [id number] v irus and diagnosis of SA RS-CoV-2 virusinfection. It is an Emergency Use Authorization ( EUA) testauthorized by the U.S. FDA. BASIC METABOLIC [id number] 14:55:00 Test Item Value Reference Range Interpretation Comments SODIUM (test code = 140 mmol/L 136-145 N NA) POTASSIUM (test code 3.6 mmol/L 3.5-5.1 N = K) CHLORIDE (test code 103.0 mmol/L 98-107 N = CL) CARBON DIOXIDE (test 27.0 mmol/L 21-32 N code = CO2) ANION GAP (test code 13.6 10-20 N = GAP) GLUCOSE (test code = 97 mg/dL 74-106 N GLU) BLOOD UREA NITROGEN 6 mg/dL 7-18 L (test code = BUN) GLOMERULAR > 60 mL/min See_Comment Estimated GFR b y FILTRATION RATE using Modifi ed MDRD (test code = GFR) formula.Ch ronic kidney disease is defined as eith er kidney damageor GFR <60 mL/min/1.73 m2 for >3 months. [Automated mess age] The system [employer] generated this result transmitted ref erence range: >=60. Th e reference range was not used to int erpret this result as normal/abnormal . CREATININE (test 0.60 mg/dL 0.55-1.02 N Note copeland ge in code = CREAT) reference rang e due to change in reagent. BUN/CREATININE RATIO 10.2 10-20 N (test code = BUN/CREA) CALCIUM (test code = 8.7 mg/dL 8.5-10.1 N CA) CT ABDOMEN PELVIS W [id number] 03:00:13 Changes suggestive of upper and lower urinary tract infection in form ofcystitis thickening and left lobar nephronia measuring 2.3 cm. A follow-upimaging is recommended after medical treatment to reassure clearance. Preliminary Report Dictated by Resident: Joaquín Kirk MD., have reviewed this study and agree with theabove report.EXAM: CT ABDOMEN AND PELVIS WITH CONTRAST HISTORY: Patient c/o LLQ pain, vomiting that started yesterday. Fever of103.2 F. COMPARISON: None. TECHNIQUE AND FINDINGS: Contiguous axial imaging from the level of the lungbases through the proximal thighs was performed after the administration ofintravenous Omnipaque contrast. Coronal and sagittal reconstructions wereobtained. ?Auto mA and/or iterative reconstruction were used to reduceradiation dose. FINDINGS: LOWER THORAX: The lungs bases are clear. LIVER: A punctate hypodensity in the left lobetoo small to characterize. Normal contour. GALLBLADDER AND BILIARY TREE: Post cholecystectomy.. SPLEEN: No splenomegaly. PANCREAS: No ductal dilation or masses. ADRENAL GLANDS: No adrenal nodules. KIDNEYS: Left interpolar centrally hypoattenuating focus is seen suggestiveof lobar nephronia (2:53) measuring 2.3 cm. Left inferior polehypoattenuating cyst measuring 2.1 cm. Focal cortical thinning about theleft inferior renal pole and right upper pole suggestive of renal scarring.Mild left perinephric fat stranding. PERITONEUM AND RETROPERITONEUM: No free air or fluid. LYMPH NODES: No lymphadenopathy. GI TRACT: Changes of gastric bypass with sliding hiatal hernia. No dilationor wall thickening. PELVIS/BLADDER: A 1.2 cm exophytic subserosal fundal fibroid is seen. A 1.8cm right corpus luteal cyst. Theleft ovary is unremarkable. Mucosalenhancement and diffuse mural thickening of the urinary bladder wallsuggestive of cystitis. VESSELS: Unremarkable. BONES AND SOFT TISSUES: Anterior height loss of T8 vertebral body. [facility], Radiant Results Inft User - 10/29/2020 9:01 PM CSTEXAM: CT ABDOMEN AND PELVIS WITH CONTRASTHISTORY: Patient c/o LLQ pain, vomiting that started yesterday. Fever of103.2 F.COMPARISON: None.TECHNIQUE AND FINDINGS: Contiguous axial imaging from the level of the lungbases through theproximal thighs was performed after the administration ofintravenous Omnipaque contrast. Coronal andsagittal reconstructions wereobtained. Auto mA and/or iterative reconstruction were used to reduceradiation dose.FINDINGS:LOWER THORAX: The lungs bases are clear. LIVER: A punctate hypodensity in the left lobe too small to characterize. Normal contour.GALLBLADDER AND BILIARY TREE: Post cholecystectomy..SPLEEN: No splenomegaly.PANCREAS: No ductal dilation or masses.ADRENAL GLANDS: No adrenal nodules.KIDNEYS: Left interpolar centrally hypoattenuating focus is seen suggestiveof lobar nephronia (2:53) measuring 2.3 cm. Left inferior polehypoattenuating cyst measuring 2.1 cm. Focal cortical thinning about theleft inferior renal pole and right upper pole suggestive of renal scarring.Mild left perinephric fat stranding.PERITONEUM AND RETROPERITONEUM: No free air or fluid.LYMPH NODES: No lymphadenopathy.GI TRACT: Changes of gastric bypass with sliding hiatal hernia. No dilationor wall thickening.PELVIS/BLADDER: A 1.2 cm exophytic subserosal fundal fibroid is seen. A 1.8cm right corpus luteal cyst. Theleft ovary is unremarkable. Mucosalenhancement and diffuse mural thickening of the urinary bladder wallsuggestive of cystitis.VESSELS: Unremarkable.BONES AND SOFT TISSUES: Anterior height loss of T8 vertebral body.IMPRESSIONChanges suggestive of upper and lower urinary tract infection in form ofcystitis thickening and left lobar nephronia measuring 2.3 cm. A follow-upimaging is recommended after medical treatment to reassure clearance.Preliminary Report Dictated by Resident: Dorcas Heredia, Joaquín Lawrence MD., have reviewed this study and agree with theabove report.[facility] [id number] 02:29:00 Test Item Value Reference Range Interpretation Comments MAGNESIUM (test code = 5359199668) 1.9 mg/dL 1.7-2.4 Lab Interpretation (test code = Normal 30091-3) [facility]ysis2020-12-28 01:40:00 Test Item Value Reference Range Interpretation Comments APPEARANCE (test code = Hazy Clear A 5794048330) COLOR (test code = Dnaielle Yellow A 1653254659) PH (test code = 4.8-8.0 4553301882) SP GRAVITY (test code = 1.003-1.030 5753557270) GLU U QUAL (test code = Normal Normal 9901302511) BLOOD (test code = Negative Negative 2510466801) KETONES (test code = Negative Negative 3647183573) PROTEIN (test code = 30 mg/dL Negative A 2887-8) UROBILIN (test code = 4.0 mg/dL Normal A 2966199089) BILIRUBIN (test code = Negative Negative 1630956707) NITRITE (test code = Positive Negative A 3839389393) LEUK JAY JAY (test code = Negative Negative 9512058454) RBC/HPF (test code = See_Comment [Autom ated message] 1564061088) The system [employer] generated this result transmit adams reference range : 0 - 3 HPF. The refe rence range was not u sed to interpret th is result as normal/abnormal . WBC/HPF (test code = See_Comment H [Autom ated message] 6497464030) The system [employer] generated this result transmit adams reference range : 0 - 5 HPF. The refe rence range was not u sed to interpret th is result as normal/abnormal . BACTERIA (test code = Many Negative A 9296066629) MUCOUS (test code = Slight Negative LPF A 0620375358) SQ EPITH (test code = HPF 6789949380) HYAL CAST (test code = See_Comment H [Aut omated message] 4277357602) The system [employer] generated this result transmit adams reference range : <=2 LPF. The refere nce range was not u sed to interpret th is result as normal/abnormal . Lab Interpretation (test Abnormal code = 96955-9) [facility] with [id number] 01:26:00 Test Item Value Reference Range Interpretation Comments WBC (test code = See_Comment [Automated 3012-2) message] The sy stem which generated this result transmitted reference range : 4.30 - 11.10 10*3/?L. The reference range was not used to interpret this result as normal/abnormal . RBC (test code = See_Comment [Automated 789-8) message] The sy stem which generated this result transmitted reference range : 3.93 - 5.25 10*6/?L. The reference range was not used to interpret this result as normal/abnormal . HGB (test code = 9.7 g/dL 11.6-15 L 718-7) HCT (test code = 32.5 % 35.7-45.2 L 4544-3) MCV (test code = 70.8 fL 80.6-95.5 L 787-2) MCH (test code = 21.1 pg 25.9-32.8 L 785-6) MCHC (test code = 29.8 g/dL 31.6-35.1 L 786-4) RDW-SD (test code = 43.8 fL 39-49.9 25758-9) RDW-CV (test code = 17.2 % 12-15.5 H 788-0) PLT (test code = See_Comment [Automated 777-3) message] The sy stem which generated this result transmitted reference range : 166 - 358 10*3/ ?L. The reference r darron was not used to interpret this result as normal/abnormal . MPV (test code = 10.8 fL 9.5-12.9 95886-2) NRBC/100 WBC (test See_Comment [Automat ed code = 7877417884) message] The system which generated this result transmitted reference range : 0.0 - 10.0 /100 WBCs. The refer ence range was not u sed to interpret th is result as normal/abnormal . NRBC x10^3 (test code <0.01 See_Comment [Auto mated = 4173329420) message] The s ystem which generated this result transmitted reference range : 10*3/?L. The reference range was not used to interpret this result as normal/abnormal . GRAN MAT (NEUT) % 90.2 % (test code = 770-8) IMM GRAN % (test code 0.80 % = 3971304455) LYMPH % (test code = 3.8 % 736-9) MONO % (test code = 4.7 % 5905-5) EOS % (test code = 0.0 % 713-8) BASO % (test code = 0.5 % 706-2) GRAN MAT x10^3(ANC) 9.01 10*3/uL 1.88-7.09 H (test code = 8550253876) IMM GRAN x10^3 (test 0.08 10*3/uL 0-0.06 H code = 9472230693) LYMPH x10^3 (test code 0.38 10*3/uL 1.32-3.29 L = 731-0) MONO x10^3 (test code 0.47 10*3/uL 0.33-0.92 = 742-7) EOS x10^3 (test code = <0.03 0.03-0.39 L 711-2) BASO x10^3 (test code 0.05 10*3/uL 0.01-0.07 = 704-7) Lab Interpretation Abnormal (test code = 18665-2) [facility] Metabolic Panel (NA, K, CL, CO2, GLUCOSE, BUN, CREATININE, CA)2020-10-30 01:22:00 Test Item Value Reference Range Interpretation Comments NA (test code = 135 mmol/L 135-145 6820586624) K (test code = 3.6 mmol/L 3.5-5 5139275381) CL (test code = 102 mmol/L 98-108 0630090307) CO2 TOTAL (test code = 24 mmol/L 23-31 1205869363) AGAP (test code = 2-16 8913899843) BUN (test code = 13 mg/dL 7-23 1876425062) GLUCOSE (test code = 122 mg/dL 70-110 H 9132798796) CREATININE (test code = 0.92 mg/dL 0.5-1.04 6104472197) CALCIUM (test code = 8.8 mg/dL 8.6-10.6 6436597748) eGFR Calculation mL/min/1.73m2 (Non-) (test code = 4703635760) eGFR Calculation mL/min/1.73m2 () (test code = 7313894199) GEORGE (test code = GEORGE) Association of Glomerular Filtration Rate (GFR) and Staging of Kidney Disease* + --+ --+ ------+| GFR (mL/min/1.73 m2) ?| With Kidney Damage ?| ?Without Kidney Damage+ --------+ --------+ +| ?>90 ?| ?Stage one ?| ? Normal ?+ ---+ ---+ -------+| ?60-89 ?| ?Stage two ?| ? Decreased GFR ? + --+ --+ ------+| ?30-59 ?| ?Stage three ?| ? Stage three ? + --+ --+ ------+| ?15-29 ?| ?Stage four ? | ? Stage four ?+ ---+ ---+ -------+| ?<15 (or dialysis) ? ?| ?Stage five ? | ? Stage five ?+ ---+ ---+ -------+ *Each stage assumes the associated GFR level has been in effect for at least three months. ?Stages 1 to 5, with or without kidney disease, indicate chronic kidney disease. Notes: Determination of stages one and two (with eGFR >59mL/min/1.73 m2) requires estimation of kidney damage for at least three months as defined by structural or functional abnormalities of the kidney, manifested by either:Pathological abnormalities or Markers of kidney damage (including abnormalities in the composition of the blood or urine or abnormalities in imaging tests). Lab Interpretation Abnormal (test code = 86523-5) [facility] (ALB, T.PRO, BILI T, BU/BC, ALT, AST, ALK PHOS)2020-10-30 01:22:00 Test Item Value Reference Range Interpretation Comments TOTAL BILI (test code = 9952043535) 0.8 mg/dL 0.1-1.1 BILI UNCON (test code = 7431930173) 0.6 mg/dL 0.1-1.1 BILI CONJ (test code = 5427516944) 0.0 mg/dL 0-0.3 T PROTEIN (test code = 4594472857) 7.3 g/dL 6.3-8.2 ALBUMIN (test code = 1733277408) 4.1 g/dL 3.5-5 ALK PHOS (test code = 4702768869) 93 U/L 34-122 ALTv (test code = 1742-6) 15 U/L 5-35 AST(SGOT) (test code = 6313179168) 23 U/L 13-40 Lab Interpretation (test code = Normal 15435-3) [facility] HospitalLipase [id number] 01:22:00 Test Item Value Reference Range Interpretation Comments LIPASE (test code = 9246082688) 34 U/L 0-220 Lab Interpretation (test code = Normal 11851-8) [facility]PO[facility] [id number] 00:45:00 Test Item Value Reference Range Interpretation Comments POCT PREG (test code = 1605) Negative On board controls acceptable with presents C Line (test code = 3574) POCT PREG LOT # (test code = 3575) [id number] POCT PREG TEST DATE (test 03/02/2022 code = 3576) Lab Interpretation (test code = Normal 48195-6) [facility]"
--- NOTE | 2022-04-06 17:41 | EDPHYS ---
Physician Documentation [facility] Name: Laverne Soria Age: 41 yrs Sex: Female : 1980 Arrival Date: 04/06/2022 Time: 16:42 Bed 9 Private MD: ED Physician Hipolito Bustamante HPI: 04/06 17:33 This 41 yrs old Female presents to ER via Ambulatory with complaints of Hives. harry 17:33 The patient's rash thought to be caused by medication, an unknown cause. The rash is harry located on the body diffusely. The rash can be described as urticarial. Onset: The symptoms/episode began/occurred yesterday. Associated signs and symptoms: Pertinent positives: burning sensation, itching. Severity of symptoms: At their worst the symptoms were mild moderate in the emergency department the symptoms have improved moderately. Treatment given at home: NONE. The patient has not experienced similar symptoms in the past. 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 - Social history:: Smoking status: Patient denies any tobacco usage or history of. - Family history:: not pertinent. ROS: 17:33 Constitutional: Negative for fever, chills, and weight loss, Eyes: Negative for injury, harry pain, redness, and discharge, ENT: Negative for injury, pain, and discharge, Neck: Negative for injury, pain, and swelling, Cardiovascular: Negative for chest pain, palpitations, and edema, Respiratory: Negative for shortness of breath, cough, wheezing, and pleuritic chest pain, Abdomen/GI: Negative for abdominal pain, nausea, vomiting, diarrhea, and constipation, Back: Negative for injury and pain, : Negative for injury, bleeding, discharge, and swelling, MS/Extremity: Negative for injury and deformity, Neuro: Negative for headache, weakness, numbness, tingling, and seizure, Psych: Negative for depression, anxiety, suicide ideation, homicidal ideation, and hallucinations, Allergy/Immunology: Negative for hives, rash, and allergies, Endocrine: Negative for neck swelling, polydipsia, polyuria, polyphagia, and marked weight changes, Hematologic/Lymphatic: Negative for swollen nodes, abnormal bleeding, and unusual bruising. 17:33 Skin: Positive for rash. Exam: 17:33 Constitutional: This is a well developed, well nourished patient who is awake, alert, harry and in no acute distress. Head/Face: Normocephalic, atraumatic. Eyes: Pupils equal round and reactive to light, extra-ocular motions intact. Lids and lashes normal. Conjunctiva and sclera are non-icteric and not injected. Cornea within normal limits. Periorbital areas with no swelling, redness, or edema. ENT: Nares patent. No nasal discharge, no septal abnormalities noted. Tympanic membranes are normal and external auditory canals are clear. Oropharynx with no redness, swelling, or masses, exudates, or evidence of obstruction, uvula midline. Mucous membranes moist. Neck: Trachea midline, no thyromegaly or masses palpated, and no cervical lymphadenopathy. Supple, full range of motion without nuchal rigidity, or vertebral point tenderness. No Meningismus. Chest/axilla: Normal chest wall appearance and motion. Nontender with no deformity. No lesions are appreciated. Cardiovascular: Regular rate and rhythm with a normal S1 and S2. No gallops, murmurs, or rubs. Normal PMI, no JVD. No pulse deficits. Respiratory: Lungs have equal breath sounds bilaterally, clear to auscultation and percussion. No rales, rhonchi or wheezes noted. No increased work of breathing, no retractions or nasal flaring. Abdomen/GI: Soft, non-tender, with normal bowel sounds. No distension or tympany. No guarding or rebound. No evidence of tenderness throughout. Back: No spinal tenderness. No costovertebral tenderness. Full range of motion. MS/ Extremity: Pulses equal, no cyanosis. Neurovascular intact. Full, normal range of motion. Neuro: Awake and alert, GCS 15, oriented to person, place, time, and situation. Cranial nerves II-XII grossly intact. Motor strength 5/5 in all extremities. Sensory grossly intact. Cerebellar exam normal. Normal gait. Psych: Awake, alert, with orientation to person, place and time. Behavior, mood, and affect are within normal limits. 17:33 Skin: Appearance: Color: normal in color, Temperature: normal temperature, Moisture: normal moisture, petechiae, not noted, ecchymosis, not noted, flushing, not noted, lesion(s), a wheal is noted, located on the back, chest, abdomen, right arm, left arm, right leg and left leg. Vital Signs: 17:02 BP 148 / 106; Pulse 88; Resp 16; Temp 98.0; Pulse Ox 98% ; Weight 85.73 kg; Height 5 ll1 ft. 2 in. (157.48 cm); Pain 0/10; 18:02 BP 134 / 90; Pulse 70; Resp 16 S; Pulse Ox 98% on R/A; jg9 17:02 Body Mass Index 34.57 (85.73 kg, 157.48 cm) ll1 MDM: 16:49 Patient medically screened. harry 17:38 Differential diagnosis: allergic reaction. Data reviewed: vital signs, nurses notes. harry Data interpreted: compliance monitor: not applicable for this patient encounter. rate is 86 beats/min, rhythm is regular. Counseling: I had a detailed discussion with the patient and/or guardian regarding: the historical points, exam findings, and any diagnostic results supporting the discharge/admit diagnosis, the need for outpatient follow up, for definitive care, an allergy/outcomes specialist, a family practitioner. Administered Medications: 18:02 Drug: Benadryl (diphenhydrAMINE) 50 mg Route: IM; Site: left deltoid; jg9 18:10 Follow up: Response: No adverse reaction; Medication administered at discharge. jg9 18:02 Drug: PrElone (prednisoLONE) Liquid 60 mg Route: PO; jg9 18:10 Follow up: Response: No adverse reaction; Medication administered at discharge. jg9 18:02 Drug: Decadron (dexamethasone) 10 mg Route: IM; Site: right deltoid; jg9 18:10 Follow up: Response: No adverse reaction; Medication administered at discharge. jg9 Disposition Summary: 04/06/22 17:40 Discharge Ordered Location: Home harry Problem: new harry Symptoms: have improved harry Condition: Fair harry Diagnosis - Urticaria, unspecified harry - Allergic urticaria harry Followup: [facility] - With: Private Physician - When: 2 - 3 days - Reason: Recheck today's complaints, Continuance of care, Re-evaluation by your physician Discharge Instructions: - Discharge Summary Sheet harry - Allergies, Adult harry - Hives harry - Rash, Adult, Nosc-cr-Ortz [facility] Forms: - Medication Reconciliation Form [facility] - Thank You Letter harry - Antibiotic Education [facility] - Prescription Opioid Use [facility] Prescriptions: - Benadryl Allergy 12.5 mg/5 mL Oral liquid - take 20 milliliter by ORAL route 4 times per day; 220 milliliter; Refills: 0, [facility] Product Selection Permitted - famotidine 40 mg/5 mL (8 mg/mL) Oral suspension - take 5 milliliter by ORAL route once daily; 60 milliliter; Refills: 0, Product [facility] Selection Permitted - prednisolone 15 mg/5 mL Oral Solution - take 10 milliliter by ORAL route 2 times per day for 3 days with food; 120 harry milliliter; Refills: 0, Product Selection Permitted Signatures: Hipolito Bustamante MD MD cha Lewis, Lynsay, RN RN ll1 Brianne Valle RN RN jg9
--- NOTE | 2022-04-06 17:41 | ER ---
Nurse's Notes [facility] Name: Lavenre Soria Age: 41 yrs Sex: Female : 1980 Arrival Date: 04/06/2022 Time: 16:42 Bed 9 Private MD: Diagnosis: Urticaria, unspecified;Allergic urticaria Presentation: 04/06 17:02 Chief complaint: Patient states: Hives off/on to body since Friday. Skin feels hot and ll1 irritated when it happens. Coronavirus screen: Vaccine status: Patient reports receiving the 2nd dose of the covid vaccine. Client denies travel out of the [place] in the last 14 days. At this time, the client does not indicate any symptoms associated with coronavirus-19. Ebola Screen: Patient denies travel to an Ebola-affected area in the 21 days before illness onset. Onset: The symptoms/episode began/occurred 5 day(s) ago. Anaphylaxis evaluation, no signs or symptoms of anaphylaxis were noted. Initial Sepsis Screen: Does the patient meet any 2 criteria? No. Patient's initial sepsis screen is negative. Does the patient have a suspected source of infection? Yes: Skin breakdown/wound. Risk Assessment: Do you want to hurt yourself or someone else? Patient reports no desire to harm self or others. Onset of symptoms was April 02, 2022. 17:02 Method Of Arrival: Ambulatory ll1 17:02 Acuity: SPENSER 4 ll1 Triage Assessment: 17:04 General: Appears in no apparent distress. Behavior is calm, cooperative, appropriate ll1 for age. Pain: Denies pain. Derm: Reports hives off/on. [employer]: 18:02 LMP 03/27/2022 jg9 Historical: - Allergies: 17:01 No Known Allergies; ll1 - Home Meds: 17:30 Calcium + vitamin D twice a day [Active]; Multiple Vitamins Oral [Active]; jg9 - PMHx: 17:01 Diabetes - NIDDM; Hypertension; Angina pectoris; ll1 - PSHx: 17:01 Cholecystectomy; hernia repair x 2; gastric sleeve; ll1 - Immunization history:: Client reports receiving the 2nd dose of the Covid vaccine. - Social history:: Smoking status: Patient denies any tobacco usage or history of. - Family history:: not pertinent. Screenin:03 Abuse screen: Denies threats or abuse. Denies injuries from another. Nutritional jg9 screening: No deficits noted. Tuberculosis screening: No symptoms or risk factors identified. Fall Risk None identified. Assessment: 17:30 Respiratory: Airway is patent Respiratory effort is even, unlabored, Breath sounds are jg9 clear bilaterally. Vital Signs: 17:02 BP 148 / 106; Pulse 88; Resp 16; Temp 98.0; Pulse Ox 98% ; Weight 85.73 kg; Height 5 ll1 ft. 2 in. (157.48 cm); Pain 0/10; 18:02 BP 134 / 90; Pulse 70; Resp 16 S; Pulse Ox 98% on R/A; jg9 17:02 Body Mass Index 34.57 (85.73 kg, 157.48 cm) ll1 ED Course: 16:42 Patient arrived in ED. jj6 16:48 Hipolito Bustamante MD is Attending Physician. [facility] 17:04 Triage completed. ll1 17:05 Arm band placed on Patient placed in an exam room, on a stretcher. ll1 17:07 Brianne Valle, [employer] is Primary Nurse. jg9 17:30 Patient has correct armband on for positive identification. Bed in low position. Call jg9 light in reach. Side rails up X 1. 18:04 No provider procedures requiring assistance completed. jg9 18:10 Patient did not have IV access during this emergency room visit. jg9 Administered Medications: 18:02 Drug: Benadryl (diphenhydrAMINE) 50 mg Route: IM; Site: left deltoid; jg9 18:10 Follow up: Response: No adverse reaction; Medication administered at discharge. jg9 18:02 Drug: PrElone (prednisoLONE) Liquid 60 mg Route: PO; jg9 18:10 Follow up: Response: No adverse reaction; Medication administered at discharge. jg9 18:02 Drug: Decadron (dexamethasone) 10 mg Route: IM; Site: right deltoid; jg9 18:10 Follow up: Response: No adverse reaction; Medication administered at discharge. jg9 Medication: 18:04 VIS not applicable for this client. jg9 Outcome: 17:40 Discharge ordered by . [facility] 18:09 Discharged to home ambulatory. jg9 18:09 Condition: stable 18:09 Discharge instructions given to patient, Instructed on discharge instructions, follow up and referral plans. Demonstrated understanding of instructions, follow-up care, Prescriptions given X 3. 18:10 Patient left the ED. jg9 Signatures: Hipolito Bustamante MD MD cha Lewis, Lynsay, RN RN ll1 Brianne Evans jj6 Brianne Valle RN RN jg9 Corrections: (The following items were deleted from the chart) 17:43 17:02 BP 148 / 106; Resp 16bpm; Temp 98.0F; 85.73 kg; Height 5 ft. 2 in.; BMI: 34.5; ll1 Pain 0/10; ll1
[2022-04-06] MEDS ORDERED: DIPHENHYDRAMINE 50 MG/ML VIAL ONE (18:01)
[2022-04-06] MEDS ORDERED: predniSONE 20 MG TAB ONE (18:01)
[2022-04-06] MEDS ORDERED: dexAMETHasone 10 MG/ML VIAL ONE (18:03)
[2022-04-06] MEDS ORDERED: prednisoLONE 15 MG/5 ML OSYR ONE (18:03)
[2022-04-06 18:20] VITALS: TEMP 98; O2SAT 98
[2022-04-06 18:22] VITALS: BP 134/90
== END 2022-04-06 18:10 | disposition home or self-care (01) ==
LOC: ER 16:42
DX: L50.0 Allergic urticaria (principal); E11.9 Type 2 diabetes mellitus without complications; I10 Essential (primary) hypertension
CPT/HCPCS: 96372; 99283; J1200; J7510; J1100; J7512